=== PATIENT | female | born 1955 | race Caucasian/White ===

== ENCOUNTER 2025-02-22 08:00 | Outpatient (CLI) | payer MEDICARE, SELFPAY ==
[2025-02-22 13:33] LABS: Albumin* 4.1 g/dL (3.3-5.0); Chloride* 102 mmol/L (96-114); Potassium* 4.2 mmol/L (3.6-5.1); Sodium* 137 mmol/L (135-149)
[2025-02-22 13:35] LABS: Alanine Aminotransferase* 24 U/L (4-35); Blood Urea Nitrogen* 18 mg/dL (7-30); Creatinine* 0.7 mg/dL (0.5-1.5); Estimated Glomerular Filt Rate 92 ml/min
[2025-02-22 13:36] LABS: Alkaline Phosphatase* 78 U/L (40-150); Anion Gap 4 mEq/L (7-15); Aspartate Amino Transferase* 30 U/L (12-35); Bilirubin Total* 0.6 mg/dL (0.1-1.5); Calcium* 9.6 mg/dL (8.4-10.6); Carbon Dioxide* 31 mmol/L (20-32); Cholesterol* 166 mg/dL (90-199); Glucose* 96 mg/dL (60-115); HDL Cholesterol* 57 mg/dL (>=50); Total Protein* 7.0 g/dL (6.0-8.3); Triglycerides* 65 mg/dL (40-149)
== END 2025-02-22 08:01 | disposition home or self-care (01) ==
LOC: NPINS 08:02
PROVIDERS: PCP Pediatrics; Visit Provider Pediatrics
DX: E78.5 Hyperlipidemia, unspecified (principal)
CPT/HCPCS: 80053; 80061